=== PATIENT | male | born 2000 | race Two or more races ===

== ENCOUNTER 2020-09-10 13:57 | Emergency (ER) | payer SELFPAY ==
[2020-09-10] MEDS ORDERED: Alum Hydrox/Mag Hydrox/Simeth 15 ML, Lidocaine 2% 15 ML PO ONE ×2 (14:57)
[2020-09-10] MEDS ORDERED: Ondansetron 4 MG Tab.DIS PO ONE (14:57)
--- NOTE | 2020-09-10 15:05 | EDM.PDOC ---
ED HPI GENERAL MEDICAL PROBLEM - General Chief Complaint: General Stated Complaint: chest hurts and feels weak Time Seen by Provider: 09/10/20 14:50 Source of Information: Reports: Patient, RN. Denies: Old Records History Limitations: Reports: No Limitations - History of Present Illness INITIAL COMMENTS - FREE TEXT/NARRATIVE: 20 yo male presents with mild nausea, resolved dizziness, mild stomach pain, and mild chest wall pain. He has not had a fever or diarrhea. Was brought in from work for evaluation. No black or bloody stools. Onset: Gradual Onset Date: 09/09/20 Duration: Hour(s):, Constant (except dizziness has resolved.) Location: Reports: Head, Chest, Abdomen Quality: Reports: Dull Severity: Mild Improves with: Reports: None Worsens with: Reports: None Context: Reports: Other (See HPI) Associated Symptoms: Reports: Chest Pain (sternal), Loss of Appetite, Nausea/Vomiting. Denies: Cough, Fever/Chills, Headaches, Shortness of Breath Treatments KAIAWHINA KOHANGA REO: Reports: Other (see below) (none) Upper Abdomen Pain Score (Numeric/FACES): 6 - Related Data Allergies Allergy/AdvReac Type Severity Reaction Status Date / Time No Known Allergies Allergy Verified 09/10/20 14:36 Home Meds: Home Meds Famotidine 40 mg PO BEDTIME #30 tablet 09/10/20 [Rx] Ondansetron [Zofran ODT] 4 mg PO Q6H PRN #7 tab.dis 09/10/20 [Rx] Past Medical History Psychiatric History: Reports: Anxiety, Depression - Past Surgical History Dermatological Surgical History: Reports: None Social & Family History - Tobacco Use Tobacco Use Status *Q: Never Tobacco User - Caffeine Use Caffeine Use: Reports: Soda - Recreational Drug Use Recreational Drug Use: No ED ROS GENERAL - Review of Systems Review Of Systems: See Below Constitutional: Reports: No Symptoms HEENT: Reports: No Symptoms Respiratory: Reports: No Symptoms Cardiovascular: Reports: Lightheadedness (earlier, not now) Endocrine: Reports: No Symptoms GI/Abdominal: Reports: Nausea, Vomiting (x one) : Reports: No Symptoms Musculoskeletal: Reports: No Symptoms Skin: Reports: No Symptoms Neurological: Reports: No Symptoms Psychiatric: Reports: No Symptoms ED EXAM, GENERAL - Physical Exam Exam: See Below Exam Limited By: No Limitations General Appearance: Alert, WD/WN, No Apparent Distress Eye Exam: Bilateral Eye: Normal Inspection Ears: Normal External Exam, Normal Canal, Hearing Grossly Normal Ear Exam: Bilateral Ear: Auricle Normal, Canal Normal Nose: Normal Inspection, No Blood Throat/Mouth: Normal Inspection, Normal Lips, Normal Oropharynx, Normal Voice, No Airway Compromise Head: Atraumatic, Normocephalic Neck: Normal Inspection Respiratory/Chest: No Respiratory Distress, Lungs Clear, Normal Breath Sounds, No Accessory Muscle Use. No: Chest Non-Tender (sternal tenderness present) Cardiovascular: Regular Rate, Rhythm, No Edema. No: Tachycardia GI/Abdominal: Normal Bowel Sounds, Soft, No Distention, Tender (epigastrium). No: Non-Tender, Distended Back Exam: Normal Inspection. No: CVA Tenderness (R), CVA Tenderness (L) Extremities: Normal Inspection, Normal Range of Motion, Non-Tender, No Pedal Edema Neurological: Alert, Oriented, CN II-XII Intact, Normal Cognition, No Motor/Sensory Deficits Psychiatric: Normal Affect, Normal Mood Skin Exam: Warm, Dry, Intact, Normal Color, No Rash Course - Vital Signs Last Recorded V/S: Last Vital Signs Temp 36.6 C 09/10/20 14:35 Pulse 66 09/10/20 14:35 Resp 18 09/10/20 14:35 BP 127/65 09/10/20 14:35 Pulse Ox 99 09/10/20 14:35 Orthostatic Blood Pressure [ 127/73 Standing] Orthostatic Blood Pressure [ 122/74 Sitting] Orthostatic Blood Pressure [ 134/63 Supine] - Orders/Labs/Meds Orders: Active Orders 24 hr Category Date Time Status Orthostatic Vital Signs [RC] ASDIRECTED Care 09/10/20 14:58 Active Meds: Medications Discontinued Medications Generic Name Dose Route Start Last Admin Trade Name Chandrakant PRN Reason Stop Dose Admin Acetaminophen 1,000 mg 09/10/20 15:07 09/10/20 15:15 Acetaminophen 500 Mg Tab PO 09/10/20 15:08 1,000 mg ONETIME ONE Administration Al Hydroxide/Mg Hydroxide 15 0 ml 09/10/20 14:57 09/10/20 15:13 ml/ Lidocaine HCl 15 ml PO 09/10/20 14:58 15 ml ONETIME ONE Administration Ondansetron HCl 4 mg 09/10/20 14:57 09/10/20 15:13 Ondansetron 4 Mg Tab.Dis PO 09/10/20 14:58 4 mg ONETIME ONE Administration - Re-Assessments/Exams Free Text/Narrative Re-Assessment/Exam: 09/10/20 15:24 Got epigastric relief with GI cocktail Departure - Departure Time of Disposition: 15:35 Disposition: Home, Self-Care 01 Condition: Fair Clinical Impression: Mild dehydration Gastritis Qualifiers: Gastritis type: superficial Chronicity: acute Gastritis bleeding: without b leeding Qualified Code(s): K29.00 - Acute gastritis without bleeding - Discharge Information *PRESCRIPTION DRUG MONITORING PROGRAM REVIEWED*: Not Applicable *COPY OF PRESCRIPTION DRUG MONITORING REPORT IN PATIENT RAFIQ: Not Applicable Prescriptions: Famotidine 40 mg PO BEDTIME #30 tablet Ondansetron [Zofran ODT] 4 mg PO Q6H PRN #7 tab.dis PRN Reason: Nausea Referrals: PCP,None [Primary Care Provider] - Forms: ED Department Discharge Additional Instructions: Take famotidine every evening until gone. Take Zofran every 6 hrs as needed for nausea control. Take acetaminophen up to 1000 mg every 6 hrs as needed for pain relief. Drink enough fluids so that your urine is very light yellow, not dark. Rest today. Recheck if not improving. Avoid: ibuprofen, Aleve, aspirin, carbonated beverages, caffeine, tobacco, alcohol. Sepsis Event Note (ED) - Evaluation Sepsis Screening Result: No Definite Risk - Focused Exam Vital Signs: Vital Signs Temp Pulse Resp BP Pulse Ox 09/10/20 14:35 36.6 C 66 18 127/65 99 09/10/20 14:31 36.6 C 66 18 127/65 99 - My Orders Last 24 Hours: My Active Orders 09/10/20 14:58 Orthostatic Vital Signs [RC] ASDIRECTED - Assessment/Plan Last 24 Hours: My Active Orders 09/10/20 14:58 Orthostatic Vital Signs [RC] ASDIRECTED
[2020-09-10] MEDS ORDERED: Acetaminophen 500 MG Tab PO ONE (15:07)
== END 2020-09-10 15:51 | disposition home or self-care (01) ==
LOC: JP.ED 13:57
DX: K29.00 Acute gastritis without bleeding (principal); E86.0 Dehydration
CPT/HCPCS: 99284; A9270